=== PATIENT | female | born 1960 | race Caucasian/White ===

== ENCOUNTER 2016-06-24 10:07 | Emergency (ER) | payer SELFPAY ==
[~2016-06-24] VITALS: Ht 160 cm; Wt 57.3 kg
[2016-06-24 10:14] VITALS: BP 130/84
== END 2016-06-24 12:10 | disposition home or self-care (01) ==
LOC: ED 10:07
DX: M62.830 Muscle spasm of back (principal); G89.29 Other chronic pain; M25.512 Pain in left shoulder; R03.0 Elevated blood-pressure reading, without diagnosis of hypertension; M19.90 Unspecified osteoarthritis, unspecified site
CPT/HCPCS: 20552; J1885; J2001

== ENCOUNTER 2018-05-14 09:05 | Emergency (ER) | payer OTHER ==
[~2018-05-14] VITALS: Ht 160 cm; Wt 57.2 kg
[2018-05-14 09:14] VITALS: Ht 160 cm; Wt 57.2 kg
[2018-05-14 10:44] VITALS: BP 146/95
== END 2018-05-14 10:44 | disposition home or self-care (01) ==
LOC: ED 09:05
DX: K13.0 Diseases of lips (principal)
CPT/HCPCS: J2001

== ENCOUNTER 2019-12-09 12:12 | Emergency (ER) | payer OTHER ==
[~2019-12-09] VITALS: Ht 160 cm; Wt 61.2 kg
[2019-12-09 12:14] VITALS: Ht 160 cm; Wt 61.2 kg
[2019-12-09 15:49] VITALS: BP 110/75
== END 2019-12-09 15:49 | disposition home or self-care (01) ==
LOC: ED 12:12
DX: M25.551 Pain in right hip (principal); M19.90 Unspecified osteoarthritis, unspecified site